=== PATIENT | female | born 1955 | race Caucasian/White ===

== ENCOUNTER 2024-08-07 14:01 | Emergency (ER) | payer MEDICARE, OTHER, SELFPAY ==
[2024-08-07] VITALS (8 sets, daily range): BP systolic 116–131; BP diastolic 66–76; PULSE 68–70; BMI 27.0
[2024-08-07 14:40] LABS: Hematocrit 30.7 % (37.0-47.0); Hemoglobin 10.4 g/dL (12.0-16.0); Mean Corp Hgb Conc. 33.9 g/dL (33.0-37.0); Mean Corpuscular Hgb 29.8 pg (27.0-31.0); Mean Platelet Volume 9.8 fL (7.4-10.4); Platelet Count 222 10^3/uL (130-400); Red Blood Cell Count 3.49 10^6/uL (4.20-5.40); Red Cell Dist. Width 15.9 % (11.5-14.5); White Blood Cell Count 5.5 10^3/uL (4.8-10.8)
--- NOTE | 2024-08-07 14:51 | ED.GENMED ---
History of Present Illness
General
Chief Complaint: Fainting/Passed Out
Source: patient and spouse ( at bedside)
Exam Limitations: none
Time Seen by Provider: 08/07/24 14:10
Nursing documentation reviewed up to this point in time: agreed with
History of Present Illness
History of Present Illness:
Patient is a 69-year-old female with history GERD, GI bleeding secondary to diverticular bleed, hypothyroid, currently undergoing chemotherapy for lymphoma who presents to the emergency department after syncopal event while at home. Patient states
that she was sitting on the toilet having a bowel movement after experiencing some abdominal cramping when she started to feel nauseous and lightheaded just prior to the syncopal event. Fortunately�patient was able to call for her prior to
passing out. After attempting to stand, she became lightheaded, got off the toilet for fear of passing out, and subsequently lost consciousness again. Her states that she had 1 episode of vomiting while sitting up in the bathroom prior to
911 arriving.
Patient reports a relatively normal bowel movement for her both in consistency and color. She does note occasional dark stools however she takes iron supplementation. She denies any recent bloody stools.
At this time�patient states she feels tired although denies any abdominal pain, chest pain, shortness of breath, lingering lightheadedness/dizziness. She is no longer nauseous. She denies any urinary symptoms.
Past History
Past History
ED Past Medical History: Other (Headaches, MGUS) and Other (waldrons macroglobulinemia)
ED Past Surgical History: Orthopedic (Carpal tunnel, right trigger finger)
Social History
Tobacco: Non-smoker
Drug: None
Personal:
Living: with family
Employment: Other
Family History
Family History: Other
Review of Systems
Review of Systems
Allergies reviewed?: Yes
All Other Systems: ROS reviewed and negative except as documented in HPI and ROS
Phy Exam
Physical Exam
Physical Exam:
Vitals: Patient's vital signs are stable
General: Patient is well appearing, no acute distress. Nontoxic appearing
Skin: Warm and dry, no rashes or lesions
Head: Normocephalic, atraumatic
Eyes: Sclera nonicteric. EOMs intact. No nystagmus.
Throat: Protecting airway
Neck: Normal ROM, no cervical spine tenderness, no meningismus
Cardiac: Regular rate and rhythm, no murmurs. Port in place right upper chest wall.
Pulm: Normal respiratory effort, no wheezes, rales, rhonchi heard on exam
Abdomen: Abdomen soft and nontender. No rebound tenderness or guarding.
Rectal: Very minimal soft brown stool in rectal vault, Hemoccult negative
Extremities: No evidence of cyanosis or edema. Strength 5/5 in upper and lower extremities. Palpable distal pulses bilaterally
Neuro: AAOx3. CN II-XII grossly intact on examination. No focal neurologic deficits. Steady gait. Fluid speech
Psychiatric: Normal affect.
Course
Orders/Labs/Results
Orders:
Orders
08/07/24 14:03
EKG [Electrocardiogram (*1)] Urgent
Reason for Study: Syncope
08/07/24 14:04
EKG- Treatment ONCE
08/07/24 14:10
CBC/With Diff [Complete Blood Count/With Diff] Urgent
08/07/24 14:50
Orthostatic VS- Treatment ONCE
0.9% Sodium Chloride 1000 ml [Nss] 1,000 ml IV BOLUS
08/07/24 15:41
Comprehensive Metabolic Panel Routine
Abnormal Lab Results
08/07/24 08/07/24
14:10 15:41
RBC 3.49 L 10^6/uL
(4.20-5.40)
Hgb 10.4 L g/dL
(12.0-16.0)
Hct 30.7 L %
(37.0-47.0)
RDW 15.9 H %
(11.5-14.5)
Abs Immat Gran (auto) 0.1 H 10^3/uL
(0-0.05)
Absolute Lymphs (auto) 0.5 L 10^3/uL
(1.2-3.4)
Immature Gran % 1.1 H %
(0-0.5)
Neutrophils % 76.4 H %
(42.2-75.2)
Lymphocytes % 8.3 L %
(20.5-51.1)
Monocytes % 10.1 H %
(1.7-9.3)
Glucose 106 H mg/dl
(70-99)
Total Protein 8.9 H g/dl
(6.3-8.2)
08/07/24 14:10
08/07/24 15:41
Vital Signs
Initial and Last Documented VS:
Initial Vital Signs
BP
127/68
08/07/24 14:07
Last Documented Vital Signs
Pulse Resp BP Pulse Ox
72 19 127/76 98
08/07/24 16:45 08/07/24 16:45 08/07/24 16:00 08/07/24 16:45
MDM/Problems Addressed
Differential Diagnosis Includes:
Not limited to: Vasovagal syncope, orthostatic hypotension, dehydration, anemia, GI bleeding, medication side effect, electrolyte imbalance, etc.
MDM/Problems Addressed:
The patient is a 69-year-old female presenting to the emergency department following an episode of syncope after having a bowel movement. She reported feeling nauseous and lightheaded prior to losing consciousness, followed by a brief episode of
vomiting. She did not experience any chest pain or shortness of breath. Upon arrival, the patient was hemodynamically stable. Physical examination revealed an unremarkable cardiopulmonary assessment, a soft and non-tender abdomen, palpable distal
pulses, and no neurological deficits. Rectal exam reveals heme-negative stool. The overall suspicion is likely vasovagal syncope, though other considerations included cardiac arrhythmia, orthostatic hypotension, and gastrointestinal bleeding. ED
plan: check labs, EKG, orthostatics. Will give IVF.
Laboratory tests including a complete blood count (CBC) and comprehensive metabolic panel (CMP) were ordered and reviewed, showing no clinically significant abnormalities. Hemoglobin levels were stable, and gastrointestinal bleeding was not
suspected. Orthostatic vital signs were normal. An EKG was performed, displaying normal sinus rhythm with premature atrial contractions (PACs), which she has a history of. The administration of intravenous fluids led to a significant improvement in
her symptoms. She was able to walk around the room without experiencing lightheadedness or nausea.
Overall impression is likely vasovagal syncope. Given improvement in symptoms and negative workup - feel stable for discharge home w/ PCP and cardiology f/u. The patient was advised to stay well-hydrated and was educated on strict return
precautions. Patient and her comfortable with plan.
Chronic conditions affecting care:
N/A
Acute Exacerbation and/or Progression of Chronic Illness:
N/A
*Pulse Oximetry
Patient hypoxic: no (98% on room air)
*EKG
Interpreted by ED Provider?: Yes
EKG Intrepretation Date: 08/07/24
Interpretation: abnormal
Comparison EKG: changes noted
Heart Rate: 65
Rate: normal
Rhythm: sinus and PAC's
[place]: normal axis
Interval: normal QT interval
QRS Pattern: normal QRS
Ischemia: non-specific ST changes
*Vault Worker Interpretation
Rate: normal
Interpretation: normal
Heart Rate: 70
Rhythm: sinus
*Critical Care Note
Total Time (30-74mins, 75-104mins- exclusive of procedures): Not Applicable
ED Attending Note
-
Portions of this chart may have been created with voice recognition software.� Occasional wrong word or��sound alike� substitutions may have occurred due to the inherent limitations of voice recognition software.
Discharge Plan
Departure
Patient Disposition: Home (Routine Discharge)
Date of Disposition: 08/07/24
Time of Disposition: 17:34
Patient with high blood pressure during this ER visit?: No
Condition: Good
Covid-19: Not Applicable
Discharge Problem:
Vasovagal syncope
Instructions: Syncope (Fainting) (DC), Vasovagal Response (DC)
Prescriptions:
No Action
metoprolol succinate 50 mg Tablet Extended Release 24 Hr
50 mg PO DAILY
magnesium oxide 140 mg Capsule
140 mg PO DAILY
levothyroxine 25 mcg Tablet
25 mcg PO DAILY@0700
calcium carbonate [Calcium 600] 600 mg calcium (1,500 mg) Tablet
600 mg PO BID
omega-3 acid ethyl esters [Lovaza] 1 gram Capsule
1 cap PO DAILY
mecobalamin (vitamin B12) [B12 Active] 1,000 mcg Tablet,Chewable
1,000 mcg PO DAILY
estradiol 10 mcg Insert
10 mcg VAGINAL DIRECTED
Rx Instructions:
Twice weekly
Lactobac/Bifidobac [Visbiome]
2 cap PO DAILY Qty: 20 0RF
cranberry extract [Ellura] 200 mg Capsule
200 mg PO DAILY
lorazepam 1 mg Tablet
1 mg PO HS PRN (Reason: SLEEP)
Patient Comments:
PER PT ONLY NEEDED
Referrals:
Nir Penny MD [Active, Cardiology] - Call in 1-3 days for appt
Frederic Colon MD [Family Provider, Family Practice] - Follow up in 2-3 days
Activity Restrictions/Additional Instructions:
RETURN TO THE EMERGENCY DEPARTMENT FOR ANY FEVERS, CHEST PAIN, SHORTNESS OF BREATH, INTRACTABLE NAUSEA/VOMITING OR ABDOMINAL PAIN, LIGHTHEADEDNESS/DIZZINESS OR OTHER EPISODES OF FAINTING, DARK/BLOODY STOOLS, WORSENING CURRENT SYMPTOMS, OR ANY OTHER
CONCERNS
- As discussed�your lab work in the emergency department showed no acute abnormalities. You were given a liter of IV fluids.
- I suspect your symptoms were likely secondary to a vasovagal vagal syncopal event. It is important stay well-hydrated. Continue to take your medications as prescribed.
- Follow-up with both primary care and cardiology for further evaluation/management to ensure that symptoms are improving
Monitor your symptoms closely and return to the emergency department with any acute worsening/new symptoms or any other concerns
Interventions
Interventions:
*Risk Screen - Suicide Last Done: 08/07/24 14:05
*General Assessment Last Done: 08/07/24 14:05
*Neglect/Abuse Screening Last Done: 08/07/24 14:05
*Nursing Disposition Last Done: 08/07/24 18:24
ED- Cardiac Assessment Last Done: 08/07/24 14:20
ED- Neurological Assessment Last Done: 08/07/24 14:20
Discharge Date and Time
Discharge Date/Time: 08/07/24 18:24
Print Language: LATVIAN
[2024-08-07] MEDS: NSS 1000 IV (15:43)
[2024-08-07 16:15] LABS: ALT (SGPT) 12 U/L (0-35); AST (SGOT) 17 U/L (14-36); Albumin 3.8 g/dl (3.5-5.0); Alkaline Phosphatase 95 U/L (38-126); Blood Urea Nitrogen 15 mg/dl (7-17); Calcium 9.6 mg/dl (8.4-10.2); Carbon Dioxide 27 mmol/L (22-30); Chloride 106 mmol/L (98-107); Estimated Creatinine Clearance 54 ml/min; Glucose 106 mg/dl (70-99); Potassium 4.5 mmol/L (3.5-5.1); Sodium 140 mmol/L (135-145); Total Bilirubin 0.8 mg/dl (0.2-1.3); Total Protein 8.9 g/dl (6.3-8.2); eGFR > 60.00
[2024-08-07 17:33] LABS: % Basophils 0.4 % (0-2); % Eosinophils 3.7 % (0-6); % Immature Granulocytes 1.1 % (0-0.5); % Lymphocytes 8.3 % (20.5-51.1); % Monocytes 10.1 % (1.7-9.3); % Neutrophils 76.4 % (42.2-75.2); Absolute Eosinophils 0.2 10^3/uL (0-0.7); Absolute Immature Granulocytes 0.1 10^3/uL (0-0.05); Absolute Lymphocytes 0.5 10^3/uL (1.2-3.4); Absolute Monocytes 0.6 10^3/uL (0.1-0.6); Absolute Neutrophils 4.2 10^3/uL (1.4-6.5); Nucleated Red Blood Cells % 0 %
== END 2024-08-07 18:24 | disposition home or self-care (01) ==
LOC: EMR 14:01
PROVIDERS: EMERGENCY PHYSICIAN Emergency Medicine; FAMILY PHYSICIAN Family Medicine
DX: R55 Syncope and collapse (principal); I49.1 Atrial premature depolarization; E03.9 Hypothyroidism, unspecified; C85.90 Non-Hodgkin lymphoma, unspecified, unspecified site; Z79.60 Long term (current) use of unspecified immunomodulators and immunosuppressants; Z87.19 Personal history of other diseases of the digestive system
CPT/HCPCS: 96360; 99284; 80053; 85025; 93005